=== PATIENT | female | born 1980 | race Asian ===

== ENCOUNTER 2016-10-10 11:55 | Inpatient (IN) | payer BC ==
[2016-10-10] VITALS (57 sets, daily range): BP systolic 98–180; BP diastolic 51–151; PULSE 89–143; RESP 18; TEMP 97.9
[~2016-10-10] VITALS: Ht 157.5 cm; Wt 69.9 kg
[~2016-10-10 11:55] MED LIST: Z.0.NO CURRENT MEDS
[2016-10-10 12:50] LABS: BACTERIA, URINE RARE /hpf; BLOOD, URINE TRACE (NEG); GLUCOSE,URINE NEG (NEG); KETONE, URINE NEG (NEG); NITRITE,URINE NEG (NEG); PH, URINE 6.5 (5.0-8.5); SQUAMOUS EPITHELIAL CELL URINE 3 /hpf (0-5); URINE COLOR YELLOW (YELLW/STRAW)
[2016-10-10 12:51] LABS: COMMENT (UR) CULT NOT INDICATED; CULTURE IF INDICATED CULT NOT INDICATED
[2016-10-10] MEDS ORDERED: BETAMETHASONE SOD PHOS/ACETATE SUSP 30 MG/5 ML VIAL IM ONE (13:00)
[2016-10-10] MEDS ORDERED: LACTATED RINGER'S 1000 ML INJ 1,000 ML IV SCH ×3 (14:30→18:00)
[2016-10-10 15:17] LABS: AUTOMATED NEUTROPHIL # 6.9 TH/MM3 (1.8-7.7); BASOPHIL % 0.3 % (0.0-2.0); EOSINOPHIL # 0.1 TH/MM3 (0-0.4); EOSINOPHIL % 0.7 % (0.0-4.0); HEMATOCRIT 41.8 % (35.0-46.0); HEMO FLAGS DIFF FINAL; LYMPH % 13.7 % (9.0-44.0); LYMPHOCYTE # 1.2 TH/MM3 (1.0-4.8); MEAN CELL VOLUME 86.2 FL (80.0-100.0); MEAN CORPUSCULAR HEMOGLOBIN 29.4 PG (27.0-34.0); MEAN CORPUSCULAR HGB CONC 34.1 % (32.0-36.0); MONO % 6.4 % (0.0-8.0); NEUT % 78.9 % (16.0-70.0); PLATELET COUNT 189 TH/MM3 (150-450); RED BLOOD COUNT 4.85 MIL/MM3 (4.00-5.30); RED CELL DISTRIBUTION WIDTH 14.3 % (11.6-17.2); WHITE BLOOD COUNT 8.8 TH/MM3 (4.0-11.0)
[2016-10-10] MEDS ORDERED: DIPHTH/TETANUS/ACEL PERTUSSIS (BOOSTER) 0.5 ML VIAL/PFS IM ONE (16:00)
[2016-10-10] MEDS ORDERED: MEASLES, MUMPS, RUBELLA VACCINE 0.5 ML VIAL SQ ONE (16:00)
[2016-10-10] MEDS ORDERED: fentaNYL 2MCG-BUPIV 0.125% INJ 100 ML ONE (16:37)
[2016-10-10] MEDS ORDERED: ePHEDrine/NS 25 MG/5 ML SYR ONE (16:37)
[2016-10-10] MEDS ORDERED: LIDOCAINE HCL 1% 50 ML VIAL I-DERMAL PRN (16:45)
[2016-10-10] MEDS ORDERED: CITRIC ACID-SODIUM CITRATE LIQ 30 ML UDC PO SCH (16:45)
[2016-10-10] MEDS ORDERED: LIDOCAINE HCL 1% 50 ML VIAL INFIL PRN (16:45)
[2016-10-10] MEDS ORDERED: MINERAL OIL 10 ML VIAL TOPICAL PRN (16:45)
[2016-10-10] MEDS ORDERED: SODIUM CHLORID 0.9% 500 ML INJ 500 ML IV PRN (17:00)
--- NOTE | 2016-10-10 17:35 | MH ---
cc: NABIL MARC DATE OF ADMISSION: 10/10/2016 The time is now 1630 hours. HISTORY OF PRESENT ILLNESS The patient is a 36-year-old, , female para 0-0-1-0 with an LMP of 02/09/15, EDC of 11/16/2016. She presented to the office this morning about 11:00 a.m. with pelvic pressure, cramps, urinary urgency and frequency. Her cervix was fingertip and posterior with some spotting. She was sent to the labor room for evaluation and received one dose of steroids, she received IV fluid hydration. Ultrasound showed a vertex presentation, normal fluid, EFW of about 5 pounds 5 ounces. She is now examined with increased contractions, is 4-5 cm, 90% vertex, intact, 0 station. She is now admitted for delivery. PAST MEDICAL HISTORY Previous surgery none. MEDICATIONS None except for vitamins. ALLERGIES NONE. TRANSFUSIONS None. SOCIAL HISTORY She is . Works at [employer]. Alcohol, tobacco and drugs are none. PHYSICAL EXAMINATION GENERAL: This is a well-nourished, well-developed female. VITAL SIGNS: Vital signs are stable. HEENT: Exam is normal. CHEST: Chest is clear. HEART: Regular rate. BREASTS: Breasts are symmetrical. ABDOMEN: Abdomen is gravid. EFW of about 2500 grams. PELVIC: Cervix was 4-5, 90%, vertex, intact, 0 station. ASSESSMENT 34-35 weeks, in labor. PLAN Epidural anesthesia. She will have prophylactic antibiotics due to prematurity even though her GBS is negative. I discussed with the and the family anticipated vaginal . MD JOJO Krishnan/ESPERANZA /4:39 PM /5:06 PM
[2016-10-10] MEDS ORDERED: SODIUM CHLOR 0.9% 1000 ML INJ 1,000 ML IV PRN (18:00)
[2016-10-10] MEDS ORDERED: OXYTOCIN 30 UNITS-500ML PREMIX 500 ML IV ONE (18:00)
[2016-10-10] MEDS ORDERED: PENICILLIN G POTASSIUM INJ 5,000,000 UNITS in SODIUM CHLORIDE 0.9% INJ 100 ML IV ONE (18:00)
[2016-10-10] MEDS ORDERED: LACTATED RINGER'S 1000 ML INJ 1,000 ML IV PRN (18:00)
[2016-10-10 18:39] LABS: AMPHETAMINE, URINE NEG (NEG); BARBITURATES, URINE NEG (NEG); COCAINE, URINE NEG (NEG)
[2016-10-10] MEDS ORDERED: ALUMINUM/MAGNESIUM/SIMETH 30 ML CUP PO PRN (19:30)
[2016-10-10] MEDS ORDERED: oxyCODONE/ACETAMINOPHEN 5 MG/325 MG TAB PO PRN ×2 (19:30)
[2016-10-10] MEDS ORDERED: BENZOCAINE 20% TOPICAL SPRAY 60 ML CAN TOPICAL PRN (19:30)
[2016-10-10] MEDS ORDERED: ACETAMINOPHEN 325 MG TAB PO PRN (19:30)
[2016-10-10] MEDS ORDERED: WITCH HAZEL 50%/GLYCERIN 12.5% 40 PAD JAR TOPICAL PRN (19:30)
[2016-10-10] MEDS ORDERED: ZOLPIDEM TARTRATE 5 MG TAB PO PRN (19:30)
[2016-10-10] MEDS ORDERED: SODIUM CHLORIDE 0.9% FLUSH 5 ML FLUSH IV PRN (19:30)
[2016-10-10] MEDS ORDERED: ONDANSETRON ODT 4 MG TAB PO PRN (19:30)
[2016-10-10] MEDS ORDERED: fentaNYL 2MCG-BUPIV 0.125% INJ 100 ML EPIDURAL SCH (19:45)
[2016-10-10] MEDS ORDERED: ePHEDrine/NS 50 MG/5 ML SYR IV PRN (19:45)
[2016-10-10] MEDS ORDERED: NO SYSTEM NARCOTICS XX PRN (19:45)
[2016-10-10] MEDS ORDERED: DO NOT ADMINISTER ANTICOAGULANTS XX PRN (19:45)
[2016-10-10] MEDS ORDERED: SODIUM CHLORIDE 0.9% FLUSH 5 ML FLUSH IV SCH (21:00)
[2016-10-10] MEDS ORDERED: PENICILLIN G POTASSIUM INJ 2,500,000 UNITS in SODIUM CHLORIDE 0.9% INJ 100 ML IV SCH (22:00)
[2016-10-10] MEDS: IBUPROFEN 600 MG TAB PO PRN (22:48)
[2016-10-11 04:39] LABS: AUTOMATED NEUTROPHIL # 16.3 TH/MM3 (1.8-7.7); BASOPHIL % 0.2 % (0.0-2.0); HEMATOCRIT 34.4 % (35.0-46.0); HEMO FLAGS DIFF FINAL; LYMPH % 5.8 % (9.0-44.0); LYMPHOCYTE # 1.1 TH/MM3 (1.0-4.8); MEAN CELL VOLUME 84.7 FL (80.0-100.0); MEAN CORPUSCULAR HEMOGLOBIN 29.3 PG (27.0-34.0); MEAN CORPUSCULAR HGB CONC 34.7 % (32.0-36.0); MONO % 5.1 % (0.0-8.0); NEUT % 88.9 % (16.0-70.0); PLATELET COUNT 184 TH/MM3 (150-450); RED BLOOD COUNT 4.06 MIL/MM3 (4.00-5.30); RED CELL DISTRIBUTION WIDTH 14.1 % (11.6-17.2); WHITE BLOOD COUNT 18.3 TH/MM3 (4.0-11.0)
[2016-10-11 08:00] VITALS: BP 122/56; PULSE 91; RESP 18; TEMP 97.8
[2016-10-11] MEDS: IBUPROFEN 600 MG TAB PO PRN ×2 (12:58→22:00)
[2016-10-11 19:10] VITALS: BP 121/64; PULSE 80; RESP 14; TEMP 97.8
[2016-10-11 20:00] VITALS: O2SAT 100
[2016-10-12 03:00] VITALS: BP 107/65; PULSE 76; RESP 15; TEMP 97.5; O2SAT 99
[2016-10-12] MEDS: DOCUSATE SODIUM 50 MG/SENNA 8.6 MG TAB PO PRN ×2 (03:43→08:33)
--- NOTE | 2016-10-12 07:56 | HHI.OB ---
Subjective Post Day: 2 Remarks doing well, ok for dc home Objective Vitals/I&O Vital Signs Date Time Temp Pulse Resp B/P Pulse Ox O2 Delivery O2 Flow Rate FiO2 10/12/16 03:00 107/65 10/12/16 03:00 97.5 76 15 99 10/11/16 20:00 100 10/11/16 19:10 97.8 14 10/11/16 19:10 80 121/64 10/11/16 08:00 122/56 10/11/16 08:00 97.8 91 18 Objective Remarks GENERAL: Well-nourished, well-developed patient. ABDOMEN/GI: Abdomen soft, non-tender. Fundus: Firm, non-tender at umbilicus. GENITOURINARY: Light to moderate bleeding. EXTREMITIES: No cyanosis or edema, non-tender, without signs of DVT. Medications and IVs Current Medications Medications (Trade) Dose Ordered Sig/Dat Route Start Time Stop Time Status Last Admin Lactated Ringer's 1,000 ml @ 125 mls/hr Q8H IV 10/10/16 18:00 10/10/16 18:00 Lactated Ringer's 1,000 ml @ 3,000 mls/hr Q20M PRN IV 10/10/16 18:00 Sodium Chloride 500 ml @ 1,000 mls/hr ONCE PRN IV 10/10/16 17:00 10/12/16 16:59 (NS 1000 ml Inj) 1,000 ml @ 100 mls/hr Q10H PRN IV 10/10/16 18:00 (fentaNYL INJ) 50 mcg Q1H PRN IV PUSH 10/10/16 16:45 Fentanyl Citrate 100 mcg 100 mcg Q1H PRN IV PUSH 10/10/16 16:45 (Pfizerpen-G Inj/ NS Inj) 100 ml @ 200 mls/hr Q4H IV 10/10/16 22:00 (Muri-Lube Oil) 10 ml UNSCH PRN TOPICAL 10/10/16 16:45 (NS Flush) 2 ml BID IV 10/10/16 21:00 (NS Flush) 2 ml UNSCH PRN IV 10/10/16 19:30 (Tylenol) 650 mg Q4H PRN PO 10/10/16 19:30 (Motrin) 600 mg Q6H PRN PO 10/10/16 19:30 10/11/16 22:00 (Percocet 5-325 Mg) 1 tab Q4H PRN PO 10/10/16 19:30 (Percocet 5-325 Mg) 2 tab Q4H PRN PO 10/10/16 19:30 (Americaine 20% Top Spr) 1 spray Q4H PRN TOPICAL 10/10/16 19:30 10/10/16 22:49 (Tucks Pads) 1 applic QID PRN TOPICAL 10/10/16 19:30 10/10/16 22:48 (Laverne-Colace) 2 tab Q12H PRN PO 10/10/16 19:30 10/12/16 03:43 (Ambien) 5 mg HS PRN PO 10/10/16 19:30 (Mag-Al Plus Susp Liq) 15 ml Q8H PRN PO 10/10/16 19:30 Ondansetron HCl 4 mg 4 mg Q6H PRN PO 10/10/16 19:30 (fentaNYL 2MCG-BUPIV 0.125% INJ) 100 ml @ 0 mls/hr TITRATE EPIDURAL 10/10/16 19:45 Assessment/Plan Problem List: (1) delivery delivered Discharge Planning doing well Gideon Lott MD Oct 12, 2016 07:56
[2016-10-12] MEDS ORDERED: OXYC1TAB63 PO (07:58)
--- NOTE | 2016-10-12 07:59 | HHI.DCPOC ---
Discharge Care Plan Diagnosis: (1) delivery delivered Report Symptoms to Your Doctor -Temperate above 100.5 degrees -Redness, of incision or excessive or foul smelling drainage -Unusual pain or calf pain -Increased vaginal bleeding -Painful or difficulty urinating -Feelings of extreme sadness or anxiety after 2 weeks Goals to Promote Your Health * To prevent worsening of your condition and complications * To maintain your health at the optimal level Directions to Meet Your Goals Take your medications as prescribed Follow your dietary instruction Follow activity as directed Ensure plenty of rest for recovery Drink fluids for hydration Keep your appointments as scheduled Take your immunizations and boosters as scheduled If your symptoms worsen call your PCP, if no PCP go to Urgent Care Center or Emergency Room Smoking is Dangerous to Your Health. Avoid second hand smoke Call the 24-hour crisis hotline for domestic abuse at Gideon Lott MD Oct 12, 2016 07:58
[2016-10-12 08:00] VITALS: TEMP 98.3
--- NOTE | 2016-10-12 08:02 | HHI.DS ---
Admission Date Oct 10, 2016 at 16:34 Discharge Date: Oct 12, 2016 Admitting Diagnosis Diagnosis: (1) delivery delivered Diagnosis: Principal : Primary Brief History patient has previa and for CS hypertension Hospital Course patient is doing well s/p CS dc home ppd #2 Pt Condition on Discharge: Good Discharge Disposition: Discharge Home Discharge Instructions Diet Instructions: As Tolerated, No Restrictions Activities You Can Perform: Pelvic Rest Activities to Avoid: Driving for 24 hrs New Medications: Oxycodone-Acetaminophen (Oxycodone-Acetaminophen) 5-325 mg Tab 1 TAB PO Q4H PRN PAIN SCALE 3 TO 5 #30 TAB Discontinued Medications: Miscellaneous (No Current Meds) Misc Gideon Lott MD Oct 12, 2016 08:02
[2016-10-12] MEDS: IBUPROFEN 600 MG TAB PO PRN (10:29)
[2016-10-15 09:46] LABS: BATH SALTS (MDPV) UR NEG (NEG); ECSTASY (MDMA) UR NEG (NEG); HEROIN (6-ACETYLMORPHINE) UR NEG (NEG); K2 SPICE UR NEG (NEG); OBMETHADONE UR NEG (NEG); OXYCODONE (PERCODAN) NEG (NEG); PHENCYCLIDINE URINE NEG (NEG)
== END 2016-10-12 12:48 | disposition home or self-care (01) | DRG 775 ==
LOC: HOBED 11:55 → H2EA 15:16 → OBSVTOIN 16:34 → H2EA 16:34 → H2EB 16:42 → H1EA 22:05
PROVIDERS: ADMIT Obstetrics & Gynecology; ATTEND Obstetrics & Gynecology
PROC: 10E0XZZ Delivery of Products of Conception, External Approach (ICD-10-PCS; principal; 2016-10-10)
PROC: 0W8NXZZ Division of Female Perineum, External Approach (ICD-10-PCS; 2016-10-10)
PROC: 3E0S3CZ (ICD-10-PCS; 2016-10-10)
PROC: 00HU33Z Insertion of Infusion Device into Spinal Canal, Percutaneous Approach (ICD-10-PCS; 2016-10-10)
DX: O60.14X0 Preterm labor third trimester with preterm delivery third trimester, not applicable or unspecified (principal); O34.219 Maternal care for unspecified type scar from previous cesarean delivery; O09.523 Supervision of elderly multigravida, third trimester; Z37.0 Single live birth; Z3A.35 35 weeks gestation of pregnancy
CPT/HCPCS: 59025; 76816; 80307; 81001; 85025; 86850; 86900; 86901; 88307; 90715; 96360; 96372; G0481; J0702; J2540; J2590; J7120